=== PATIENT | male | born 1995 | race Caucasian/White ===

== ENCOUNTER 2017-09-11 12:33 | Outpatient (CLI) | payer OTHER ==
--- NOTE | 2017-09-11 14:37 | XRAY Report ---
CHEST, TWO VIEWS: 09/11/2017 HISTORY: Cough and fever. COMPARISON: 04/20/2016. FINDINGS: There is a new left pleural effusion with a round mass-like density in the left chest, measuring approximately 10 cm in diameter. This may be loculated fluid within the major fissure. The right lung is clear. No right pleural effusion. No pneumothorax on either side. Heart size normal. Negative bony structures. IMPRESSION: LEFT MIDLUNG MASS, POSSIBLY LOCULATED FLUID IN THE MAJOR FISSURE WITH ASSOCIATED LEFT PLEURAL EFFUSION AND BASILAR AIRSPACE DISEASE. FURTHER EVALUATION BY CHEST CT WITH CONTRAST IS SUGGESTED. RESULTS CALLED TO DR. BARRERA 09/11/2017 1:05 P.M. TD: 09/11/2017 14:27
== END 2017-09-11 12:34 | disposition home or self-care (01) ==
LOC: DI 12:33
PROVIDERS: ATTEND Internal Medicine
DX: J90 Pleural effusion, not elsewhere classified (principal); R91.8 Other nonspecific abnormal finding of lung field; R05 Cough; R50.9 Fever, unspecified
CPT/HCPCS: 71046

== ENCOUNTER 2017-09-12 12:37 | Outpatient (CLI) | payer OTHER ==
[2017-09-12] MEDS ORDERED: IOPAMIDOL-300 100 ML VIAL ONE (13:38)
--- NOTE | 2017-09-12 14:59 | CT Report ---
CT SCAN OF THE CHEST: 09/12/2017 HISTORY: Cough and fever for 2 months. COMPARISON: 09/11/2017 chest x-ray. TECHNIQUE: Axial noncontrast images of the chest are obtained with sagittal and coronal reformations. Two attempts were made to start an IV, but were unsuccessful and patient refused further attempts. FINDINGS: There is a well-circumscribed, approximately 8 x 10 x 6.5 cm low attenuation collection (22 Hounsfield units) with a thick rind in the mid left chest with an associated left pleural effusion. Findings are most concerning for an empyema. This abuts and deforms the major fissure. The lungs are otherwise clear. No right effusion. No pneumothorax. Multiple small mediastinal lymph nodes without pathologically enlarged adenopathy. Upper abdomen unremarkable in appearance. Negative bony structures. IMPRESSION: WELL CIRCUMSCRIBED LOW-ATTENUATION 10 X 8 X 6.5 CM COLLECTION LEFT CHEST WITH ASSOCIATED LEFT PLEURAL EFFUSION. FINDINGS ARE MOST CONCERNING FOR AN EMPYEMA. LUNG ABSCESS IS INCLUDED IN THE DIFFERENTIAL DIAGNOSIS, BUT SEEMS LESS LIKELY. EXAMINATION DONE WITHOUT CONTRAST, SEE ABOVE. RESULTS CALLED TO DR. BARRERA 3 PM 09/12/17. CT DOSE REDUCTION STATEMENT In accordance with CT protocol optimization, one or more of the following dose reduction techniques were utilized for this exam: automated exposure control, adjustment of mA and/or KV based on patient size, or use of iterative reconstructive technique. TD: 09/12/2017 14:46 EVER
== END 2017-09-12 12:38 | disposition home or self-care (01) ==
LOC: DI 12:37
PROVIDERS: ATTEND Internal Medicine
DX: J90 Pleural effusion, not elsewhere classified (principal)
CPT/HCPCS: 71250

== ENCOUNTER 2017-10-06 10:00 | Outpatient (CLI) | payer OTHER ==
--- NOTE | 2017-10-06 15:53 | CT Report ---
Procedure Date: 10/06/2017 Accession Number: [id number] / [id number] Procedure: CT - Chest W/O CPT Code: FULL RESULT: EXAM: CT CHEST EXAM DATE: 10/06/2017 10:23 AM. CLINICAL HISTORY: ABSCESS OF LEFT LUNG WITH PNEUMONIA,UNSPECIFIED PA. COMPARISONS: Chest CT dated 09/12/2017. TECHNIQUE: Routine helical CT imaging was performed through the chest. IV contrast: None. Reconstructions: Coronal and sagittal. In accordance with CT protocol optimization, one or more of the following dose reduction techniques were utilized for this exam: automated exposure control, adjustment of mA and/or KV based on patient size, or use of iterative reconstructive technique. FINDINGS: Lungs/Pleura: The previously described empyema along the posterior lateral aspect of the left lower lobe has nearly completely resolved with only a minimal amount of fluid remaining in the left lateral pleura measuring approximately 18 mm in thickness, previously 64 mm. Atelectasis/scarring in the left lung is redemonstrated. Patchy groundglass opacities in the left lower lobe measuring up to 1.7 x 1.2 cm (series 4, image 47). Patchy groundglass opacities are also demonstrated in the right upper lobe (series 4, image 25 and right middle lobe (series 4, image 42). Mediastinum: The heart is normal in size. There is a precarinal lymph node measuring up to 8 mm in short axis, previously 6 mm. This is thought to be reactive in nature. Bones: Unremarkable. Visualized Abdomen: Unremarkable. Other: There is a right-sided PICC position with its tip near the upper cavoatrial junction. IMPRESSION: 1. Significantly improved left-sided pleural fluid collection (empyema). 2. New patchy groundglass opacities are noted in the right lung and left lower lobe which may represent inflammatory or early infectious etiology. Follow-up imaging to confirm resolution should be considered. [facility]
== END 2017-10-06 10:01 | disposition home or self-care (01) ==
LOC: DI 10:00
PROVIDERS: ATTEND Physician Assistant
DX: J85.1 Abscess of lung with pneumonia (principal); J86.9 Pyothorax without fistula
CPT/HCPCS: 71250